=== PATIENT | male | born 1965 | race Caucasian/White ===

== ENCOUNTER 2021-04-29 16:25 | Inpatient (IN) | payer OTHER ==
[~2021-04-29] VITALS: Ht 182.9 cm; Wt 64.6 kg
[2021-04-29 18:20] LABS: BASOPHIL 0.3 % (0-2); EOSINOPHIL 0.7 % (0-5); HCT 45.6 % (42.0-52.0); HGB 15.2 g/dl (13.2-18.0); LYMPHOCYTE 21.3 % (15-48); MCH 31.1 pg (25.0-31.0); MCHC 33.3 g/dL (32.0-36.0); MCV 93.4 fL (78.0-100.0); MONOCYTE 8.2 % (0-12); MPV 9.4 fL (6.0-9.5); NEUTROPHIL 69.2 % (41-80); NRBC 0; PLT 219 K/uL (150-400); RBC 4.88 M/uL (4.70-6.00); RDW 13.7 % (11.5-14.0)
[2021-04-29 18:38] LABS: ALBUMIN 3.7 g/dL (3.4-5.0); BILIRUBIN - TOTAL 1.8 mg/dL (0.2-1.0); BUN/CREAT RATIO (CALC) 10.7 RATIO; CREATININE 0.84 mg/dL (0.67-1.17); GLOBULIN (CALCULATION) 4.6 g/dL; POTASSIUM 4.2 mmol/L (3.5-5.1); TOTAL PROTEIN 8.3 g/dL (6.4-8.2)
[2021-04-29 19:31] LABS: LACTIC ACID 1.6 mmol/L (0.4-1.9)
[2021-04-29 19:37] LABS: BILIRUBIN NEGATIVE (NEGATIVE); BLOOD 2+ Ery/uL (NEGATIVE); CLARITY CLEAR (CLEAR); COLOR YELLOW (YELLOW); GLUCOSE (U) NORMAL (NORMAL); LEUKOCYTES NEGATIVE Leu/uL (NEGATIVE); NITRITE NEGATIVE (NEGATIVE); PROTEIN TRACE (LOW) mg/dL (NEGATIVE); SPECIFIC GRAVITY 1.015 (1.001-1.030); UROBILINOGEN 0.2 mg/dL (0.2-1.0); pH 5.5 (5.0-9.0)
[2021-04-29 20:24] LABS: INR 1.11 (0.9-1.2); PROTHROMBIN TIME 13.7 SECONDS (11.8-13.4)
[2021-04-29 20:25] LABS: PTT 29.6 SECONDS (24.4-34.7)
[2021-04-29 20:38] LABS: PRO-BNP 60 pg/mL (<125)
[2021-04-29 23:10] LABS: MAGNESIUM 2.2 mg/dL (1.8-2.4)
[2021-04-30 00:18] LABS: AMPHETAMINES POSITIVE (NEGATIVE); BARBITURATES NEGATIVE (NEGATIVE); ECSTASY (MDMA) NEGATIVE (NEGATIVE); MARIJUANA (THC) NEGATIVE (NEGATIVE); METHADONE NEGATIVE (NEGATIVE); OPIATES POSITIVE (NEGATIVE); OXYCODONE NEGATIVE (NEGATIVE)
[2021-04-30 06:05] LABS: BASOPHIL 0.7 % (0-2); EOSINOPHIL 2.2 % (0-5); HCT 38.1 % (42.0-52.0); HGB 12.7 g/dl (13.2-18.0); LYMPHOCYTE 24.5 % (15-48); MCH 31.1 pg (25.0-31.0); MCHC 33.3 g/dL (32.0-36.0); MCV 93.2 fL (78.0-100.0); MONOCYTE 10.3 % (0-12); MPV 9.8 fL (6.0-9.5); NRBC 0; PLT 200 K/uL (150-400); RBC 4.09 M/uL (4.70-6.00); RDW 13.6 % (11.5-14.0); WBC 10.3 K/uL (4.0-10.5)
[2021-04-30 06:30] LABS: BILIRUBIN - DIRECT 0.2 mg/dL (0.00-0.20); BILIRUBIN - TOTAL 0.7 mg/dL (0.2-1.0); CREATININE 0.77 mg/dL (0.67-1.17); MAGNESIUM 1.8 mg/dL (1.8-2.4); POTASSIUM 3.8 mmol/L (3.5-5.1)
[2021-05-01 06:53] LABS: BASOPHIL 0.9 % (0-2); EOSINOPHIL 3.3 % (0-5); HCT 38.9 % (42.0-52.0); HGB 12.9 g/dl (13.2-18.0); LYMPHOCYTE 26.7 % (15-48); MCH 30.7 pg (25.0-31.0); MCHC 33.2 g/dL (32.0-36.0); MCV 92.6 fL (78.0-100.0); MONOCYTE 10.1 % (0-12); MPV 9.5 fL (6.0-9.5); NEUTROPHIL 58.6 % (41-80); NRBC 0; PLT 221 K/uL (150-400); RDW 13.3 % (11.5-14.0); WBC 7.9 K/uL (4.0-10.5)
[2021-05-01 07:26] LABS: ALBUMIN 2.4 g/dL (3.4-5.0); BILIRUBIN - TOTAL 0.8 mg/dL (0.2-1.0); CREATININE 0.78 mg/dL (0.67-1.17); GLOBULIN (CALCULATION) 3.5 g/dL; POTASSIUM 4.1 mmol/L (3.5-5.1)
[2021-05-01 07:28] LABS: TOTAL PROTEIN 5.9 g/dL (6.4-8.2)
[2021-05-01] MEDS ORDERED: DUONEB 2.5-0.5M1 AMP INH (11:28)
[2021-05-01] MEDS ORDERED: ELIQUIS5 MG PO (11:28)
[2021-05-01] MEDS ORDERED: LEVAQUIN500 MG PO (11:39)
--- NOTE | 2021-05-01 13:19 | NUR ---
05/01/21 Mr. Weldon lives with his sister. He does not use DME. - Leticia verified insurance coverage for medications without a co-pay. 02 is not needed at discharge as evidence by walk test.
== END 2021-05-01 15:38 | disposition home or self-care (01) | DRG 175 ==
LOC: FER 16:25 → FMS 20:31
PROVIDERS: Allergy & Immunology Allergy; Emergency Medicine; Physician Assistant; ADMIT Allergy & Immunology
DX: I26.99 Other pulmonary embolism without acute cor pulmonale (principal); J96.91 Respiratory failure, unspecified with hypoxia; A15.0 Tuberculosis of lung; Z20.822 Contact with and (suspected) exposure to COVID-19; J44.9 Chronic obstructive pulmonary disease, unspecified; F17.210 Nicotine dependence, cigarettes, uncomplicated; F15.10 Other stimulant abuse, uncomplicated; F11.10 Opioid abuse, uncomplicated; Z98.890 Other specified postprocedural states; Z86.711 Personal history of pulmonary embolism; Z87.01 Personal history of pneumonia (recurrent)
CPT/HCPCS: 36415; 71045; 71275; 80048; 80053; 80305; 81001; 82150; 82247; 82248; 83605; 83690; 83735; 83880; 84145; 84484; 85025; 85610; 85730; 87070; 87205; 93005; 93970; 94010; 94640; A4216; G0378; G0480; J1650; J2270; J2405; J7030; Q9967; U0002